=== PATIENT | female | born 1965 | race Caucasian/White ===

== ENCOUNTER 2016-06-27 16:57 | Emergency (ER) | payer MEDICARE, MEDICAID ==
[2016-06-28] MEDS ORDERED: KETOROLAC 30 MG/ML VIAL ONE (00:13)
[2016-06-28] MEDS ORDERED: ONDANSETRON 4 MG VIAL ONE (00:13)
[2016-06-28] MEDS ORDERED: SODIUM CHLORIDE 0.9% 1,000 ML ONE (00:14)
[2016-06-28] MEDS ORDERED: MORPHINE 2 MG/ML SYR ONE (01:18)
== END 2016-06-28 01:47 | disposition home or self-care (01) ==
LOC: ER 16:57
CPT/HCPCS: 36415 ×2; 71020 ×2; 80053 ×2; 81003 ×2; 82553 ×2; 83690 ×2; 84484 ×2; 85025 ×2; 93005 ×2; 96361 ×2; 96374 ×2; 96375 ×2; 99285; J1885; J2405